=== PATIENT | female | born 1990 | race Caucasian/White ===

== ENCOUNTER 2016-09-09 19:37 | Emergency (ER) | payer OTHER ==
[~2016-09-09] VITALS: Ht 185.4 cm; Wt 72.6 kg
[2016-09-09 19:46] VITALS: BP 128/75
[2016-09-09] MEDS ORDERED: Bacitracin Oint UD TOPIC ONE (20:00)
[2016-09-09] MEDS ORDERED: Lidocaine 1% MPF 10mg/ml 5ml INJ ONE (20:00)
[2016-09-09] MEDS ORDERED: Surgicel 4in x 8in TOPIC ONE ×2 (20:00→20:45)
[2016-09-09] MEDS ORDERED: CEPHALEXIN500 MG ORAL (20:35)
[2016-09-09] MEDS ORDERED: IBUPROFEN600 MG ORAL (20:35)
[2016-09-09 20:42] VITALS: BP 128/75
--- NOTE | 2016-09-09 21:12 | Emergency Room Report ---
History of Present Illness General Chief Complaint: Laceration Source: Patient Present Illness HPI The patient is a 26-year-old female [id number] presenting for laceration of the left index finger. The patient states that she was cutting at work, the knife slipped, and she sustained a laceration to the left index finger. She noticed immediate pain and bleeding. Pain is now described as a 10 out of 10 dull ache and does not radiate. Worse with touch. She states that she immediately cleaned the wound with soap and water and applied a clotting material which she found at work. Last tetanus shot was 5 years prior.. She denies any other injury or symptoms Allergies: Coded Allergies: No Known Allergies (Unverified , 09/09/16) Patient History Past Medical History: see triage record Pertinent Family History: none Last Menstrual Period: 09/04/16 Now: No Reviewed Nursing Documentation: PMH: Agreed, PSxH: Agreed Nursing Documentation-PMH Past Medical History: No Stated History Review of Systems All Other Systems: negative except mentioned in HPI Physical Exam Vital Signs Date Time Temp Pulse Resp B/P Pulse Ox O2 Delivery O2 Flow Rate FiO2 09/09/16 19:42 97.9 76 16 128/75 100 Room Air Sp02 EP Interpretation: reviewed, normal General Appearance: no apparent distress, alert, GCS 15, non-toxic Head: normocephalic, atraumatic Eyes: bilateral eye PERRL, bilateral eye normal inspection Musculoskeletal: back normal, gait/station normal, normal range of motion, tender - TTP over the distal L index finger Neurologic: alert, oriented x3, responsive, motor strength/tone normal, sensory intact, speech normal Psychiatric: judgement/insight normal, memory normal, mood/affect normal, no suicidal/homicidal ideation Skin: laceration - avulsion of the distal lateral index finger including fingernail Procedures Splinting Splinting : Consent: Verbal Location: L index finger Pre-Made Type: metal Pre-Proc Neuro Vasc Exam: normal Post-Proc Neuro Vasc Exam: normal Patient Tolerated: Well Complications: None Laceration/Wound Repair Laceration/Wound Repair : Consent: Verbal Wound Location: upper extremity - Distal L index Wound's Depth, Shape: superficial, nail-avulsed - partial Wound Length (cm): 2 Wound Explored: clean Irrigated w/ Saline (ccs): 250 Betadine Prep?: Yes Anesthesia: 1% Lidocaine Volume Anesthetic (ccs): 5 Wound Debrided: minimal Number of Sutures: 0 Layer Closure?: No Number Deep Layer Sutures: 0 Sterile Dressing Applied?: Yes Splint Applied?: Yes - metal finger Type of Splint Applied: metal finger Sling Applied?: No Patient Tolerated: Well Complications: None Progress Multiple layers of surgicel placed. Bleeding has stopped. Sterile dressing applied Medical Decision Making PA Attestation Dr. Lange is my supervising physician. Patient management was discussed with my supervising physician Diagnostic Impression: Primary Impression: Laceration of finger of left hand Qualified Codes: S61.311A - Laceration without foreign body of left index finger with damage to nail, initial encounter ER Course The patient is a 26-year-old female [id number] presenting for laceration of the left index finger Ddx considered include but not limited to fracture, tendon/ligament injury, avulsion, nerve damage Physical exam: No apparent distress Musculoskeletal: There is a 2 cm avulsion of the distal lateral left index finger which includes the fingernail. There is continuous bleeding at this time. Sensation is intact. Tender to palpation. Full active range of motion The wound is cleaned with normal saline and Betadine. A 27g needle was used to administer 5mL of lidocaine w.o epi for digital block. Surgicel was applied in multiple layers and bleeding has ceased. Sterile dressing applied. A metal finger splint was applied The patient will continue to keep the wound clean and dry and will followup with PMD and workers compensation. ER precautions are given Last Vital Signs Date Time Temp Pulse Resp B/P Pulse Ox O2 Delivery O2 Flow Rate FiO2 09/09/16 20:42 97.9 16 128/75 100 Room Air 09/09/16 19:42 76 Status: improved Disposition: HOME, SELF-CARE Condition: Improved Scripts Cephalexin* (KEFLEX*) 500 Mg Capsule 500 MG ORAL EVERY 6 HOURS, #28 CAP Prov: TERZIAN,PACO P.A. 09/09/16 Ibuprofen* (MOTRIN*) 600 Mg Tablet 600 MG ORAL Q8H Y for For Pain, #30 TAB 0 Refills Prov: TERZIAN,PACO P.A. 09/09/16 Patient Instructions: Laceration Care, Adult Additional Instructions: I discussed my findings with the patient. All questions and concerns have been answered. Treatment and medication compliance have been addressed. Return to ED if pain remains or worsens, you notice discharge from the wound, the wound continues to bleed, you notice a fever or chills, or for any reason. Patient is advised to keep the wound clean. Patient verbalized understanding of discharge instructions. PACO ALEGRIA Sep 09, 2016 21:12
== END 2016-09-09 20:42 | disposition home or self-care (01) ==
LOC: EMR 20:23
DX: S61.211A Laceration without foreign body of left index finger without damage to nail, initial encounter (principal); W26.0XXA Contact with knife, initial encounter; Y92.511 Restaurant or cafe as the place of occurrence of the external cause; Y99.0 Civilian activity done for income or pay
CPT/HCPCS: 29130; 99284